=== PATIENT | female | born 1985 | race Caucasian/White ===

== ENCOUNTER 2016-09-07 16:29 | Emergency (ER) | payer BC, SELFPAY ==
[2016-09-07] MEDS ORDERED: Ketorolac 60 MG/2 ML SDV IM ONE (17:02)
--- NOTE | 2016-09-07 17:04 | EDM.PDOC ---
<Cole Gonzalez J - Last Filed: 09/07/16 17:02> ED HPI GENERAL MEDICAL PROBLEM - General Chief Complaint: Abdominal Pain Stated Complaint: ABDOMINAL PAIN Time Seen by Provider: 09/07/16 16:59 - History of Present Illness INITIAL COMMENTS - FREE TEXT/NARRATIVE: HISTORY AND PHYSICAL: History of present illness: Patient is a 31-year-old female concern of acute right lower quadrant abdominal pain this started Tuesday with some general malaise and patient states it feels similar to what she's had a prior ovarian cyst she denies fever chills nausea vomiting vaginal discharge irregular bleeding or urinary symptoms Review of systems: As per history of present illness and below otherwise all systems reviewed and negative. Past medical history: As per history of present illness and as reviewed below otherwise noncontributory. Surgical history: As per history of present illness and as reviewed below otherwise noncontributory. Social history: No reported history of drug or alcohol abuse. Family history: As per history of present illness and as reviewed below otherwise noncontributory. Physical exam: HEENT: Atraumatic, normocephalic, pupils reactive, negative for conjunctival pallor or scleral icterus, mucous membranes moist, throat clear, neck supple, nontender, trachea midline. Lungs: Clear to auscultation, breath sounds equal bilaterally, chest nontender. Heart: S1S2, regular, negative for clicks, rubs, or JVD. Abdomen: Soft, nondistended, mild tenderness in right lower quadrant is not well localized no rebound or guarding. Negative for masses or hepatosplenomegaly. Negative for costovertebral tenderness. Pelvis: Stable nontender. Genitourinary: Deferred. Rectal: Deferred. Extremities: Atraumatic, negative for cords or calf pain. Neurovascular unremarkable. Neuro: Awake, alert, oriented. Cranial nerves II through XII unremarkable. Cerebellum unremarkable. Motor and sensory unremarkable throughout. Exam nonfocal. Diagnostics: CBC CMP UA hCG CT of the pelvis Therapeutics: Toradol 60 mg IM Impression: #1 right lower quadrant abdominal pain #2 history of ovarian Definitive disposition and diagnosis as appropriate pending reevaluation and review of above. 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 ED EXAM, GENERAL - Physical Exam Exam: See Below (See dictation) Course - Vital Signs Last Recorded V/S: Last Vital Signs Temp 98.6 F 09/07/16 16:42 Pulse 83 09/07/16 19:32 Resp 16 09/07/16 19:32 BP 111/65 09/07/16 19:32 Pulse Ox 98 09/07/16 19:32 - Orders/Labs/Meds Orders: Active Orders 24 hr Category Date Time Status Abdomen Pelvis wo Cont [CT] Stat Exams 09/07/16 17:02 Taken Labs: Laboratory Tests 09/07/16 09/07/16 09/07/16 Range/Units 17:28 17:28 17:28 WBC 4.47 (4.0-11.0) K/uL RBC 4.21 L (4.30-5.90) M/uL Hgb 12.8 (12.0-16.0) g/dL Hct 37.3 (36.0-46.0) % MCV 88.6 (80.0-98.0) fL MCH 30.4 (27.0-32.0) pg MCHC 34.3 (31.0-37.0) g/dL RDW Std Deviation 42.8 (28.0-62.0) fl RDW Coeff of Maite 13 (11.0-15.0) % Plt Count 143 L (150-400) K/uL MPV 10.30 (7.40-12.00) fL Neut % (Auto) 70.4 (48.0-80.0) % Lymph % (Auto) 18.3 (16.0-40.0) % Tift % (Auto) 10.7 (0.0-15.0) % Eos % (Auto) 0.4 (0.0-7.0) % Baso % (Auto) 0.2 (0.0-1.5) % Neut # (Auto) 3.1 (1.4-5.7) K/uL Lymph # (Auto) 0.8 (0.6-2.4) K/uL Tift # (Auto) 0.5 (0.0-0.8) K/uL Eos # (Auto) 0.0 (0.0-0.7) K/uL Baso # (Auto) 0.0 (0.0-0.1) K/uL Nucleated RBC % 0.0 /100WBC Nucleated RBCs # 0 K/uL Sodium 140 (136-146) mmol/L Potassium 3.4 L (3.5-5.1) mmol/L Chloride 106 (98-110) mmol/L Carbon Dioxide 25 (21-31) mmol/L BUN 6 (6.0-23.0) mg/dL Creatinine 0.8 (0.6-1.5) mg/dL Est Cr Clr Drug Dosing 119.74 mL/min Estimated GFR (MDRD) > 60.0 ml/min Glucose 94 (60-110) mg/dL Calcium 9.0 (8.8-10.8) mg/dL Total Bilirubin 0.5 (0.1-1.5) mg/dL AST 14 (5-40) IU/L ALT 11 (8-54) IU/L Alkaline Phosphatase 35 L (40-150) Total Protein 6.6 (6.0-8.0) g/dL Albumin 4.1 (3.5-5.0) g/dL Globulin 2.5 (2.0-3.5) g/dL Albumin/Globulin Ratio 1.6 (1.3-2.8) HCG, Qual NEGATIVE (NEG) Urine Color Urine Appearance Urine pH (5.0-8.0) Ur Specific Callao (1.001-1.035) Urine Protein (NEGATIVE) mg/dL Urine Glucose (UA) (NEGATIVE) mg/dL Urine Ketones (NEGATIVE) mg/dL Urine Occult Blood (NEGATIVE) Urine Nitrite (NEGATIVE) Urine Bilirubin (NEGATIVE) Urine Urobilinogen (<2.0) EU/dL Ur Leukocyte Esterase (NEGATIVE) Urine RBC (0-2/HPF) Urine WBC (0-5/HPF) Ur Epithelial Cells (NONE-FEW) Urine Bacteria (NEGATIVE) Urine Mucus (NONE-MOD) 09/07/16 Range/Units 17:30 WBC (4.0-11.0) K/uL RBC (4.30-5.90) M/uL Hgb (12.0-16.0) g/dL Hct (36.0-46.0) % MCV (80.0-98.0) fL MCH (27.0-32.0) pg MCHC (31.0-37.0) g/dL RDW Std Deviation (28.0-62.0) fl RDW Coeff of Maite (11.0-15.0) % Plt Count (150-400) K/uL MPV (7.40-12.00) fL Neut % (Auto) (48.0-80.0) % Lymph % (Auto) (16.0-40.0) % Tift % (Auto) (0.0-15.0) % Eos % (Auto) (0.0-7.0) % Baso % (Auto) (0.0-1.5) % Neut # (Auto) (1.4-5.7) K/uL Lymph # (Auto) (0.6-2.4) K/uL Tift # (Auto) (0.0-0.8) K/uL Eos # (Auto) (0.0-0.7) K/uL Baso # (Auto) (0.0-0.1) K/uL Nucleated RBC % /100WBC Nucleated RBCs # K/uL Sodium (136-146) mmol/L Potassium (3.5-5.1) mmol/L Chloride (98-110) mmol/L Carbon Dioxide (21-31) mmol/L BUN (6.0-23.0) mg/dL Creatinine (0.6-1.5) mg/dL Est Cr Clr Drug Dosing mL/min Estimated GFR (MDRD) ml/min Glucose (60-110) mg/dL Calcium (8.8-10.8) mg/dL Total Bilirubin (0.1-1.5) mg/dL AST (5-40) IU/L ALT (8-54) IU/L Alkaline Phosphatase (40-150) Total Protein (6.0-8.0) g/dL Albumin (3.5-5.0) g/dL Globulin (2.0-3.5) g/dL Albumin/Globulin Ratio (1.3-2.8) HCG, Qual (NEG) Urine Color YELLOW Urine Appearance CLEAR Urine pH 7.0 (5.0-8.0) Ur Specific [place] 1.010 (1.001-1.035) Urine Protein NEGATIVE (NEGATIVE) mg/dL Urine Glucose (UA) NEGATIVE (NEGATIVE) mg/dL Urine Ketones 40 H (NEGATIVE) mg/dL Urine Occult Blood NEGATIVE (NEGATIVE) Urine Nitrite NEGATIVE (NEGATIVE) Urine Bilirubin NEGATIVE (NEGATIVE) Urine Urobilinogen 0.2 (<2.0) EU/dL Ur Leukocyte Esterase TRACE (NEGATIVE) Urine RBC 0-1 (0-2/HPF) Urine WBC 1-3 (0-5/HPF) Ur Epithelial Cells FEW (NONE-FEW) Urine Bacteria FEW (NEGATIVE) Urine Mucus LIGHT (NONE-MOD) Meds: Medications Discontinued Medications Generic Name Dose Route Start Last Admin Trade Name Reneq PRN Reason Stop Dose Admin Ketorolac Tromethamine 60 mg 09/07/16 17:02 09/07/16 18:42 Toradol IM 09/07/16 17:03 60 mg ONETIME ONE Administration Departure - Departure Disposition: Home, Self-Care 01 Clinical Impression: Gastroenteritis Referrals: PCP,None [Primary Care Provider] - Forms: ED Department Discharge Additional Instructions: Clear liquid diet. Advance diet as tolerated. [place] 5 325 one to 2 every 4 hours when necessary pain dispense #15 We discussed we discussed risk of being habit-forming risk of constipation and risk of sedation. Also prescribe Zofran ODT 4 mg every 4 hours when necessary dispense 6 with 2 refills. Markell Arciniega MD <Markell Arciniega - Last Filed: 09/07/16 19:47> Course - Re-Assessments/Exams Free Text/Narrative Re-Assessment/Exam: 09/07/16 19:42 I reviewed the case with . I discussed the findings with the patient. She states she's feeling a bit better. She states she had onset of symptoms within the past 48 hours. She had a slight fever to over 101. She had a loose stool with some transient improvement in symptoms. She had no vaginal discharge. Her LMP is about 2 weeks ago. Exam abdomen normal bowel sounds no rebound tenderness mild diffuse lower abdominal tenderness in this some right lower quadrant tenderness. I advised her that I think she has a viral gastroenteritis most likely. I advised that she may have some increased pain that she is midcycle and could have some pain related to ovulation she verbalized understanding. Treatment will be symptomatic. Advise you to make sure she follows up with me by phone tonight if any further developments occur. I also advised her regarding the importance of followup should things change or if she gets worse. Departure - Departure Time of Disposition: 19:45 Condition: good
[2016-09-07 18:04] LABS: CHLORIDE,CL 106 mmol/L (98-110); SODIUM,NA 140 mmol/L (136-146)
[2016-09-07 19:33] VITALS: BP 111/65
--- NOTE | 2016-09-08 15:37 | CT ---
EXAM DATE: 09/07/16 PATIENT'S AGE: 31 Patient: SHERI BOYER Facility: [place], [place] Site . Site : [id number] Study: CT Abdomen/Pelvis [id number]/25/2017 6:35:15 PM Ordering Physician: Carlos Galvan Final Report: INDICATION: Pelvic pain TECHNIQUE: CT abdomen and pelvis without i.v. contrast. Coronal and sagittal reformats were obtained. COMPARISON: None FINDINGS: Lower chest: Mild anemia is present with the cardiac chambers appearing lucent with respect to the myocardium. Liver: Unremarkable. Spleen: Spleen measures 15.5 cm in length. Pancreas: Unremarkable. Gallbladder and bile ducts: Unremarkable. Kidneys: Unremarkable. No kidney or ureteral stones and no hydronephrosis seen. Adrenal glands: Unremarkable. GI tract: Unremarkable. The appendix is not identified. Vascular: Unremarkable. Lymph nodes: Unremarkable. Miscellaneous: Unremarkable. No pneumoperitoneum is seen. Small amount of ascites is present and is likely physiologic in origin. Pelvic Organs: Unremarkable. Bones: Unremarkable for age. IMPRESSION: 1. Moderate splenomegaly is noted. Dictated by Inderjit Brar MD @ 09/07/2016 6:41:59 PM Dictated by: Inderjit Brar MD @ 09/07/2016 18:42:05 (Electronic Signature) Report Signed by Proxy and Original Signed Document filed in the Medical Record. [facility]
== END 2016-09-07 20:02 | disposition home or self-care (01) ==
LOC: MW.ED 16:29
DX: K52.9 Noninfective gastroenteritis and colitis, unspecified (principal); Z88.1 Allergy status to other antibiotic agents; F41.9 Anxiety disorder, unspecified
CPT/HCPCS: 36415; 74176; 80053; 81001; 84703; 85025; 96372; 99284; J1885; 99283